=== PATIENT | female | born 1960 | race Caucasian/White ===

== ENCOUNTER 2018-07-24 18:09 | Emergency (ER) | END 2018-07-24 20:10 | disposition home or self-care (01) ==

== ENCOUNTER 2018-12-25 11:06 | Emergency (ER) | payer MEDICARE, OTHER ==
[~2018-12-25] VITALS: Ht 167.6 cm; Wt 84.6 kg
[~2018-12-25 11:06] MED LIST: ACET500C5 PO; CLIN300C10 PO; HYDR-762 PO; ONDA4TAB35 PO; OXCA300T3 PO; QUET300T2 PO
[2018-12-25 11:34] VITALS: Ht 167.6 cm; Wt 84.6 kg
[2018-12-25] MEDS ORDERED: LORA-441 PO (12:06)
--- NOTE | 2018-12-25 12:10 | ERD ---
ER Documentation Chief Complaint Chief Complaint CP with SOB x 4 days HPI 58-year-old female presents the emergency department with a complaint of feeling "overwhelmed." Patient states that she recently underwent a physical examination and was told that she had an abnormal EKG. She was then referred to a timber bucker and recommended for an outpatient stress test to follow-up on the abnormal EKG. Since that time, she is been feeling significantly anxious and states that there is a number of issues in her life that her making her feel "overwhelmed." With the sense of feeling overwhelmed, she does not have any worsening chest pain, exertional dyspnea, palpitations or other complaints. Triage note indicates chest pain with shortness of breath and when I asked her about the symptoms specifically over the last 4 days, she goes back to the sense of feeling "overwhelmed." She denies any cough, fever, hemoptysis. She denies any other significant anginal type chest pain. ROS All systems reviewed and are negative except as per history of present illness. Medications Home Meds Active Scripts Lorazepam* (Ativan*) 0.5 Mg Tablet, 0.5 MG PO Q8H PRN for ANXIETY, #10 TAB Prov:VINNIE HERNANDEZ 12/25/18 Acetaminophen* (Tylophen*) 500 Mg Capsule, 1 CAP PO Q6H PRN for PAIN AND OR ELEVATED TEMP, #20 CAP Prov:JAMES GALVAN PA-C 07/24/18 Clindamycin Hcl* (Clindamycin Hcl*) 300 Mg Capsule, 300 MG PO TID for 10 Days, CAP Prov:JAMES GALVAN PA-C 07/24/18 Hydrocodone Bit-Acetaminophen* ([place]*) 10-325 Mg Tablet, 1 TAB PO Q6 PRN for PAIN, #7 TAB Prov:GIAN THAKKAR MD 08/24/15 Ondansetron Hcl* (Zofran* ODT) 4 mg -ODT Tab.disper, 4 MG PO Q6 PRN for NAUSEA AND/OR VOMITING, #10 TAB Prov:PONCHO NUNO MD 08/21/15 Hydrocodone Bit-Acetaminophen* ([place]*) 10-325 Mg Tablet, 1 TAB PO Q6 PRN for PA IN, #7 TAB Prov:PONCHO NUNO MD 08/21/15 Reported Medications Oxcarbazepine* (Trileptal*) 300 Mg Tablet, 300 MG PO BID 04/02/12 Quetiapine Fumarate* (Seroquel*) 300 Mg Tablet, 300 MG PO HS 04/02/12 Allergies Allergies: Coded Allergies: Penicillins (Verified Allergy, Mild, RASH, 04/24/12) PMhx/Soc History of Surgery: Yes (hysterectomy) Anesthesia Reaction: No Hx Neurological Disorder: No Hx Respiratory Disorders: No Hx Cardiac Disorders: No Hx Psychiatric Problems: No Hx Miscellaneous Medical Probl: No Hx Alcohol Use: No Hx Substance Use: No Hx Tobacco Use: No Smoking Status: Never smoker FmHx Positive for heart disease Physical Exam Vitals Vital Signs Date Temp Pulse Resp B/P (MAP) Pulse Ox O2 O2 Flow FiO2 Time Delivery Rate 12/25/18 97.5 93 19 131/78 98 11:34 (95) Physical Exam GENERAL: The patient is well developed and appropriate for usual state of health in no apparent distress HEENT: Pupils equal, round, and reactive to light. EOMI. There is no scleral icterus. NECK: C-spine is soft and supple, there is no meningismus. There is no cervical lymphadenopathy. LUNGS: Clear to auscultation bilaterally. There are no rales, wheezes or rhonchi. HEART: Regular rate and rhythm, no murmurs, clicks, rubs or gallops. ABDOMEN: Soft, non-tender, non-distended. There are bowel sounds in all four quadrants. No rebound or guarding. EXTREMITIES: There is no peripheral cyanosis or edema. No focal swelling or erythema. NEURO: The patient moves all four extremities with 5/5 strength. Cranial nerves II - XII are intact. Normal gait. Alert and oriented SKIN: There is no apparent rash or petechiae. HEME/LYMPHATIC: There is no evidence of excessive bruising or lymphedema. PSYCHIATRIC: Patient appears anxious. Normal mental status. Procedures/MDM Patient was taken to a room, seen and evaluated. Comfort measures were initiated. Diagnostic tests were ordered and reviewed. 3 LEAD RHYTHM STRIP: Normal sinus rhythm without ectopy EK lead EKG reviewed by myself: Normal Sinus Rhythm Normal Armstrong and intervals Nonspecific ST and T wave changes with T wave inversions in the anterolateral leads. No ST elevation Impression: Nonspecific EKG with crushable anterolateral ischemic changes REEVALUATION: EKG was evaluated and patient was given Ativan for anxiety. She was offered blood tests but after discussion with the patient she decided to follow-up with her doctor for outpatient stress test. MEDICAL DECISION MAKIN-year-old female with a family history of heart disease presents to the emergency department with nonspecific symptoms that seem to be anxiety related. Although patient's EKG is nonspecific and does have some questionable ischemic changes, given her recent evaluation by the timber bucker and scheduling for an outpatient stress test I believe that she is low risk enough to undergo this outpatient evaluation. Her symptoms seem to be significant and more anxiety related than they are a cardiac ischemic and based on this conversation with her family and patient, she will be referred for outpatient evaluation. Departure Diagnosis: Primary Impression: Chest pain Additional Impression: Anxiety Condition: Stable Patient Instructions: Anxiety Reaction Additional Instructions: Please see your timber bucker for your stress test as scheduled Return immediately if your pain changes or if you have any concerns VINNIE HERNANDEZ Dec 25, 2018 12:10
[2018-12-25] MEDS ORDERED: LORAZEPAM 0.5 MG TAB PO ONE (12:30)
[2018-12-25 12:45] VITALS: BP 144/74; PULSE 77; RESP 18
== END 2018-12-25 12:45 | disposition home or self-care (01) ==
LOC: E/R 11:06
DX: F41.9 Anxiety disorder, unspecified (principal)
CPT/HCPCS: 93005

== ENCOUNTER 2019-05-09 02:53 | Emergency (ER) | payer MEDICARE, OTHER ==
[~2019-05-09] VITALS: Ht 165.1 cm; Wt 87.9 kg
[2019-05-09 02:53] VITALS: Ht 165.1 cm; Wt 87.9 kg
[~2019-05-09 02:53] MED LIST changes: +LORA-441 PO
--- NOTE | 2019-05-09 03:10 | ERD ---
ER Documentation Chief Complaint Chief Complaint STATES TOOK 500MG OF SEROQUEL INSTEAD OF 200MG, C/O PALPITATIONS, ANXIETY HPI This is a 59-year-old woman with a long history of anxiety presents with anxiety reaction and palpitations, she was worried because she accidentally used a 500 mg dose of quetiapine instead of her regular 200 mg dose. She denies suicidal homicidal ideation, no chest pain or shortness of breath, no dizziness or loss of consciousness, no vomiting or diarrhea. ROS All systems reviewed and are negative except as per history of present illness. Medications Home Meds Active Scripts Lorazepam* (Ativan*) 0.5 Mg Tablet, 0.5 MG PO Q8H PRN for ANXIETY, #10 TAB Prov:VINNIE HERNANDEZ 12/25/18 Acetaminophen* (Tylophen*) 500 Mg Capsule, 1 CAP PO Q6H PRN for PAIN AND OR ELEVATED TEMP, #20 CAP Prov:JAMES GALVAN PA-C 07/24/18 Clindamycin Hcl* (Clindamycin Hcl*) 300 Mg Capsule, 300 MG PO TID for 10 Days, CAP Prov:JAMES GALVANC 07/24/18 Hydrocodone Bit-Acetaminophen* ([place]*) 10-325 Mg Tablet, 1 TAB PO Q6 PRN for PAIN, #7 TAB Prov:GINA THAKKAR MD 08/24/15 Ondansetron Hcl* (Zofran* ODT) 4 mg -ODT Tab.disper, 4 MG PO Q6 PRN for NAUSEA AND/OR VOMITING, #10 TAB Prov:PONCHO NUNO MD 08/21/15 Hydrocodone Bit-Acetaminophen* ([place]*) 10-325 Mg Tablet, 1 TAB PO Q6 PRN for PAIN, #7 TAB Prov:PONCHO NUNO MD 08/21/15 Reported Medications Oxcarbazepine* (Trileptal*) 300 Mg Tablet, 300 MG PO BID 04/02/12 Quetiapine Fumarate* (Seroquel*) 300 Mg Tablet, 300 MG PO HS 04/02/12 Allergies Allergies: Coded Allergies: Penicillins (Verified Allergy, Mild, RASH, 04/24/12) PMhx/Soc Anxiety, depression History of Surgery: Yes (hysterectomy) Anesthesia Reaction: No Hx Neurological Disorder: No Hx Respiratory Disorders: No Hx Cardiac Disorders: No Hx Psychiatric Problems: No Hx Miscellaneous Medical Probl: No Hx Alcohol Use: No Hx Substance Use: No Hx Tobacco Use: No FmHx Family History: No diabetes Physical Exam Vitals Vital Signs Date Temp Pulse Resp B/P (MAP) Pulse Ox O2 O2 Flow FiO2 Time Delivery Rate 05/09/19 121 22 125/85 94 Nasal 3.0 05:13 (98) Cannula 05/09/19 135 25 131/69 94 Nasal 3.0 04:30 (89) Cannula 05/09/19 134 24 114/81 92 Nasal 3.0 04:00 (92) Cannula 05/09/19 141 29 127/87 92 Nasal 3.0 03:30 (100) Cannula 05/09/19 151 28 126/91 91 Nasal 3.0 03:15 (103) Cannula 05/09/19 154 23 121/93 94 Nasal 3.0 03:08 (102) Cannula 05/09/19 97.8 151 25 125/73 94 02:53 (90) Physical Exam GENERAL: Well-developed, well-nourished, well-hydrated, anxious, afebrile CARDIAC: Tachycardic and regular, no murmurs rubs or gallops LUNGS: Clear bilaterally no wheezing crackles or stridor SKIN: Warm and dry to touch, no abrasions, contusions, or hematomas, no lacerations, no ecchymosis, no target lesions, and without ulcers EXTREMITIES: No clubbing cyanosis or edema, calves are bilaterally symmetrical, no Homans sign, no popliteal cord sign. Distal pulses equal and bilateral PSYCH: Appears anxious Result Diagram: 05/09/19 0305 05/09/19 0305 Results 24 hrs Laboratory Tests Test 05/09/19 03:05 05/09/19 04:43 White Blood Count 13.2 10^3/ul Red Blood Count 4.62 10^6/ul Hemoglobin 13.7 g/dl Hematocrit 41.5 % Mean Corpuscular Volume 89.8 fl Mean Corpuscular Hemoglobin 29.7 pg Mean Corpuscular Hemoglobin Concent 33.0 g/dl Red Cell Distribution Width 13.6 % Platelet Count 267 10^3/UL Mean Platelet Volume 10.7 fl Immature Granulocytes % 0.800 % Neutrophils % 58.3 % Lymphocytes % 33.3 % Monocytes % 6.6 % Eosinophils % 0.6 % Basophils % 0.4 % Nucleated Red Blood Cells % 0.0 /100WBC Immature Granulocytes # 0.100 10^3/ul Neutrophils # 7.7 10^3/ul Lymphocytes # 4.4 10^3/ul Monocytes # 0.9 10^3/ul Eosinophils # 0.1 10^3/ul Basophils # 0.1 10^3/ul Nucleated Red Blood Cells # 0.0 10^3/ul Sodium Level 146 mmol/L Potassium Level 3.4 mmol/L Chloride Level 111 mmol/L Carbon Dioxide Level 23 mmol/L Anion Gap 12 Blood Urea Nitrogen 12 mg/dl Creatinine 0.56 mg/dl Est Glomerular Filtrat Rate mL/min > 60 mL/min Glucose Level 188 mg/dl Calcium Level 10.9 mg/dl Total Bilirubin 0.4 mg/dl Direct Bilirubin 0.00 mg/dl Indirect Bilirubin 0.4 mg/dl Aspartate Amino Transf (AST/SGOT) 23 IU/L Alanine Aminotransferase (ALT/SGPT) 21 IU/L Alkaline Phosphatase 116 IU/L Troponin I < 0.012 ng/ml Total Protein 8.4 g/dl Albumin 4.9 g/dl Globulin 3.50 g/dl Albumin/Globulin Ratio 1.40 Lipase 62 U/L Blood Gas Specimen Source Blood arterial Arterial Blood Date Drawn 05/09/2019 5:00:30 AM Arterial Blood pH (Temp corrected) 7.416 Arterial Blood pCO2 (Temp correct) 35.7 mmhg Arterial Blood pO2 (Temp corrected) 101.0 mmHG Arterial Blood HCO3 22.4 mmol/L Arterial Blood Base Excess -1.6 mmol/L Arterial Blood Oxygen Saturation 97.7 mmHG Parth Test ACCEPTAB Arterial Blood Gas Puncture Site Right Radial Arterial Blood Carboxyhemoglobin 1.2 % Arterial Blood Methemoglobin 0 % Blood Gas A-a O2 Differential 114.3 mmHg Oxyhemoglobin Percent 96.5 % Blood Gas Temperature 37.0 C Blood Gas Modality NASAL CANNULA FiO2 36.0 % Blood Gas Notified Whom MA Blood Gas Notified Time 05/09/2019 5:07:39 AM Current Medications Medications Dose Sig/Rafal Start Time Status Last (Trade) Ordered Route PRN Stop Time Admin Dose Reason Admin Lorazepam 1 mg ONCE ONCE 05/09/19 DC 05/09/19 (Ativan) IV 03:30 05/09/19 03:32 03:31 Sodium 1,000 ml @ Q1H STAT 05/09/19 DC 05/09/19 Chloride 1,000 mls/hr IV 03:23 05/09/19 03:29 04:22 Potassium 40 meq ONCE ONCE 05/09/19 DC 05/09/19 Chloride PO 04:45 05/09/19 04:52 (Klor-Con 20) 04:46 Lactated 1,000 ml @ Q1H STAT 05/09/19 05/09/19 Ringer's 1,000 mls/hr IV 04:41 05/09/19 04:53 05:40 Lorazepam 1 mg ONCE ONCE 05/09/19 DC 05/09/19 (Ativan) IV 05:00 05/09/19 04:52 05:01 [facility] IV line was established patient was placed on security monitor rhythm strip r evealed a narrow complex tachycardia at 160 bpm with upright P and T waves. Patient was afebrile EKG performed, read by me revealed a sinus tachycardia at 152 bpm, normal axis, right ventricular conduction delay QRS duration 100 ms, prolonged QT of 502 ms, no concerning ST elevations or depressions noted One AP view of the chest performed, read by me reveals no acute infiltrates, normal mediastinum, sharp costophrenic and cardiac borders, no air under the diaphragm. Otherwise unremarkable chest x-ray. For initial anxiety and tachycardia I administered lorazepam 1 mg IV, and 1 L normal saline IV. CBC was unremarkable, electrolytes revealed hypokalemia 3.4, liver function tests were normal, troponin was negative. I administered potassium supplementation 40 mEq p.o., patient also received another dose of Ativan 1 mg IV and LR 1 L IV. ABG was performed, read by me reveals a pH of 7.42, PCO2 36, PO2 101. Normal Patient's tachycardia resolved and anxiety resolved. Vital signs are normal at this time and she appears well. Differential diagnoses considered, included but not limited to acute coronary syndrome, pulmonary embolism, aortic dissection, abdominal aortic aneurysm, seps is, stroke, meningitis, encephalitis, pneumonia, appendicitis, cholecystitis, bowel obstruction, pyelonephritis, nephrolithiasis, cystitis, as well as metabolic, hematologic, and electrolyte abnormalities. As well as abscess, cellulitis, fractures, and dislocations. Patient feels much better at this time, and vital signs are normal, symptoms have improved. I did give strict instructions to return to the ED if symptoms continue or worsen, patient will otherwise follow-up with primary care physic paulette. Patient understood instructions and agreed to plan. Disclaimer: Inadvertent spelling and grammatical errors are likely due to EHR/dictation software use and do not reflect on the overall quality of patient care. Also, please note that the electronic time recorded on this note does not necessarily reflect the actual time of the patient encounter. Departure Diagnosis: Primary Impression: Accidental overdose Encounter type: initial encounter Qualified Codes: T50.901A - Poisoning by unspecified drugs, medicaments and biological substances, accidental (unintentional), initial encounter Additional Impressions: Acute anxiety Acute hypokalemia Condition: Good CARLTON YADAV MD May 09, 2019 03:09
[2019-05-09] MEDS ORDERED: SOD CHLORIDE 0.9% 1,000 ML IV STA (03:23)
[2019-05-09] MEDS ORDERED: LORAZEPAM 2 MG INJ IV ONE ×2 (03:30→05:00)
[2019-05-09] MEDS ORDERED: LACTATED RINGER'S 1,000 ML IV STA (04:41)
[2019-05-09] MEDS ORDERED: POTASSIUM CHLORIDE (SR) 20 MEQ TAB PO ONE (04:45)
[2019-05-09 06:35] VITALS: BP 114/68; PULSE 74; RESP 20
== END 2019-05-09 06:35 | disposition home or self-care (01) ==
LOC: E/R 02:53
DX: T43.591A Poisoning by other antipsychotics and neuroleptics, accidental (unintentional), initial encounter (principal); F41.9 Anxiety disorder, unspecified; E87.6 Hypokalemia; R40.2142 Coma scale, eyes open, spontaneous, at arrival to emergency department; R40.2362 Coma scale, best motor response, obeys commands, at arrival to emergency department; R40.2252 Coma scale, best verbal response, oriented, at arrival to emergency department; R00.2 Palpitations
CPT/HCPCS: 36415; 36600; 71045; 80053; 82803; 83690; 84484; 85025; 93005; 96374; 96376; 99285; J2060; J7030; J7120